=== PATIENT | female | born 1950 | race Caucasian/White ===

== ENCOUNTER 2022-06-03 04:24 | Day surgery (SDC) | payer OTHER ==
[2022-06-01 09:33] VITALS: BMI 22.1
[2022-06-03 09:41] VITALS: TEMP 98
[2022-06-03 10:11] VITALS: BP 117/57; RESP 15
[2022-06-03 10:16] VITALS: PULSE 63
== END 2022-06-03 10:55 | disposition home or self-care (01) ==
LOC: JASU-ENDO 04:24
PROVIDERS: ATTEND Internal Medicine Gastroenterology
PROC: 0DJD8ZZ Inspection of Lower Intestinal Tract, Via Natural or Artificial Opening Endoscopic (ICD-10-PCS; principal; 2022-06-03 09:00)
DX: Z12.11 Encounter for screening for malignant neoplasm of colon (principal)